=== PATIENT | male | born 1970 | race Caucasian/White ===

== ENCOUNTER → 2016-09-25 | Day surgery (SDC) | payer OTHER ==
[2016-09-21 11:51] VITALS: BMI 30.8
[~2016-09-25] MED LIST: LACTATED RINGERS SOLUTION 1,000 ML IV SCH; LEVOFLOXACIN 500 MG PREMIX BAG IVPB ONE; ONDANSETRON 4 MG/2 ML VIAL IVPUSH PRN; PROMETHAZINE HCL 25 MG/1 ML VIAL IVPUSH PRN
--- NOTE | 2016-09-25 12:33 | OP ---
Operative Note - Note: Operative Date: 09/25/16 Pre-Operative Diagnosis: left renal stone Operation: left eswl Findings: 13mm left lower pole stone Post-Operative Diagnosis: Same as Pre-op Surgeon: Shane Muniz Anesthesia: General Operative Report Dictated: Yes
[2016-09-25 12:47] VITALS: TEMP 98.4
--- NOTE | 2016-09-25 13:12 | OP ---
DATE OF OPERATION: 09/25/2016 PREOPERATIVE DIAGNOSIS: Left renal stone. POSTOPERATIVE DIAGNOSIS: Left renal stone. PROCEDURE: Left extracorporeal shock-wave lithotripsy. ATTENDING: Joe Perez MD ANESTHESIA: General. DESCRIPTION OF PROCEDURE: The patient was brought in the operating room and placed in supine position on the operating room table. Ultrasonography and fluoroscopy were performed. A 1.3-cm left lower pole stone was identified. At this point, antibiotics were identified, and general anesthesia was administered. Extracorporeal shock-wave lithotripsy was then begun. Then 3000 impulses at 18-20 J of power were administered to the stone. Excellent fragmentation was noted on real time ultrasonography and fluoroscopy. No complications were noted. The patient tolerated the procedure very well. DISPOSITION: To the recovery room. JOE PEREZ M.D. [id number]
[2016-09-25 14:25] VITALS: BP 138/87; PULSE 86
== END | disposition home or self-care (01) ==
LOC: JASU-SURG 09:21
PROVIDERS: ATTEND Urology
PROC: 0TF4XZZ Fragmentation in Left Kidney Pelvis, External Approach (ICD-10-PCS; principal; 2016-09-25 11:00)
DX: N20.0 Calculus of kidney (principal)
CPT/HCPCS: 94760

== ENCOUNTER 2017-06-04 06:48 | Emergency (ER) | payer OTHER ==
[2017-06-04 07:57] VITALS: BP 135/92; PULSE 87; TEMP 98.3; BMI 30.9
[2017-06-04] MEDS ORDERED: SODIUM CHLORIDE 1,000 ML IV STA (08:48)
[2017-06-04] MEDS ORDERED: KETOROLAC TROMETHAMINE 30 MG/1 ML VIAL IVPUSH ONE (08:48)
--- NOTE | 2017-06-04 09:04 | PDOC ---
History of Present Illness - General Chief Complaint: Pain, Acute Stated Complaint: LEFT SIDE PAIN Time Seen by Provider: 06/04/17 08:09 History Source: Patient - History of Present Illness Timing/Duration: reports: constant Quality: reports: moderate Past History - Past Medical History Allergies/Adverse Reactions: Allergies Allergy/AdvReac Type Severity Reaction Status Date / Time Penicillins Allergy Swelling Verified 06/04/17 07:57 shellfish derived Allergy Verified 06/04/17 07:57 SEAFOOD Allergy Uncoded 06/04/17 07:57 Home Medications: Ambulatory Orders Ibuprofen [Motrin -] 600 mg PO QID #28 tablet 06/04/17 Ondansetron HCl [Zofran] 4 mg PO Q8H #12 tablet 06/04/17 Tamsulosin HCl [Flomax] 0.4 mg PO DAILY #7 cap.er.24h 06/04/17 Tramadol HCl 50 mg PO Q6H #6 tablet MDD 200 mg 06/04/17 Anemia: No Asthma: No Cancer: No Cardiac Disorders: No CVA: No COPD: No CHF: No Dementia: No Diabetes: No GI Disorders: No Disorders: Yes (KIDNEY STONES) HTN: No Hypercholesterolemia: No Kidney Stones: Yes Liver Disease: No Seizures: No Thyroid Disease: No - Surgical History Abdominal Surgery: No Appendectomy: No Cardiac Surgery: No Cholecystectomy: No Lung Surgery: No Neurologic Surgery: No Orthopedic Surgery: No - Immunization History Immunization Up to Date: Yes - Suicide/Smoking/Psychosocial Hx Smoking Status: Yes Smoking History: Never smoked Have you smoked in the past 12 months: No Number of Cigarettes Smoked Daily: 2 Information on smoking cessation initiated: No 'Breaking Loose' booklet given: 12/30/12 Hx Alcohol Use: No Drug/Substance Use Hx: No Substance Use Type: Marijuana Hx Substance Use Treatment: No Review of Systems - Review of Systems Constitutional: No: Chills, Fever ABD/GI: No: Constipated, Diarrhea, Nausea, Vomiting : No: Dysuria *Physical Exam - Vital Signs Last Vital Signs Temp Pulse Resp BP Pulse Ox 98.3 F 87 18 135/92 100 06/04/17 07:55 06/04/17 07:55 06/04/17 07:55 06/04/17 07:55 06/04/17 07:55 - Physical Exam General Appearance: Yes: Appropriately Dressed. No: Apparent Distress HEENT: positive: Normal Voice Neck: positive: Supple Respiratory/Chest: negative: Respiratory Distress Gastrointestinal/Abdominal: positive: Soft. negative: Tender Musculoskeletal: negative: CVA Tenderness Extremity: positive: Normal Inspection Integumentary: positive: Dry, Warm Neurologic: positive: Fully Oriented, Alert, Normal Mood/Affect ED Treatment Course - LABORATORY CBC & Chemistry Diagram: 06/04/17 08:47 06/04/17 09:05 - RADIOLOGY Radiology Studies Ordered: Category Date Time Status ABDOMEN & PELVIS CT W/O CONTR [CT] Stat CT Scan 06/04/17 08:48 Ordered Medical Decision Making - Medical Decision Making 06/04/17 09:01 46-year-old male history of kidney stones, status post multiple lithotripsies in the past, here with left flank pain radiating to groin 5 days. States he was seen by Dr. Brower in office 5 days ago and had ultrasound done which did show stone as per patient. States he was told by M.D. to wait a couple days to see if stone would pass on its own. Patient states he has been checking urine at home and has not noticed any passage of stone and continues to have left flank pain, so decided to come in to ER today. Patient denies any dysuria, hematuria, nausea, vomiting, fever or chills See exam L flank alcocer r/o recurrent stone -pain control -IVF -labs -CT 06/04/17 10:35 6mm in lower pole of L kidney and tiny calcification in mid L ureter c/f partially obstructing stone w/ mild hydro. Labs unremarkable. Pt sig improved w / meds. Will page Dr Mike Ureña to discuss dispo 06/04/17 11:11 Pt does not wish to wait for Dr Turk to call back. Requesting discharge to f/ u with *DC/Admit/Observation/Transfer Diagnosis at time of Disposition: Renal colic on left side - Discharge Dispostion Disposition: HOME Condition at time of disposition: Improved - Prescriptions Prescriptions: Tamsulosin HCl [Flomax] 0.4 mg PO DAILY #7 cap.er.24h Ibuprofen [Motrin -] 600 mg PO QID #28 tablet Tramadol HCl 50 mg PO Q6H #6 tablet MDD 200 mg Ondansetron HCl [Zofran] 4 mg PO Q8H #12 tablet - Patient Instructions Printed Discharge Instructions: Kidney Stones -- Adult Additional Instructions: Take medications as prescribed and follow-up with your urologist. If symptoms persist and/or worsen, return to ED immediately
[2017-06-04 09:13] LABS: BASOPHIL 0.7 % (0-2.0); EOSINOPHIL 2.5 % (0-4.5); MCH 30.1 pg (25.7-33.7); MCHC 34.7 g/dl (32.0-35.9); MEAN CELL VOLUME 86.6 fl (80-96); MEAN PLT VOLUME 8.5 fl (7.5-11.1); NEUTROPHILS 62.9 % (42.8-82.8); PLATELET COUNT 114 K/MM3 (134-434); RDW 13.7 % (11.9-15.9); WHITE BLOOD COUNT 6.9 K/mm3 (4.0-10.0)
[2017-06-04 09:26] LABS: URINE APPEARANCE SLCLOUDY; URINE BILIRUBIN NEGATIVE (NEGATIVE); URINE BLOOD 2+ (NEGATIVE); URINE COLOR LTYELLOW; URINE GLUCOSE (UA) NEGATIVE (NEGATIVE); URINE KETONE NEGATIVE (NEGATIVE); URINE LEUK ESTERASE NEGATIVE (NEGATIVE); URINE NITRITE NEGATIVE (NEGATIVE); URINE PROTEIN NEGATIVE (NEGATIVE); URINE UROBILINOGEN NEGATIVE mg/dL (0.2-1.0)
[2017-06-04 09:33] LABS: URINE MUCUS RARE; URINE RBC 1 /hpf (0-3); URINE WBC 3 /hpf (3-5)
[2017-06-04 09:38] LABS: ALBUMIN 3.9 g/dl (3.4-5.0); ANION GAP 5 (8-16); CALCIUM 8.8 mg/dL (8.5-10.1); CO2 27 mmol/L (21-32); GLUCOSE,RANDOM 120 mg/dL (74-106); SGOT/AST 25 U/L (15-37); SGPT/ALT 49 U/L (12-78)
[2017-06-04 09:40] LABS: ALK PHOS 67 U/L (45-117); BILIRUBIN,TOTAL 0.5 mg/dL (0.2-1.0); TOT PROT 7.7 g/dl (6.4-8.2)
[2017-06-04] MEDS ORDERED: KETOROLAC TROMETHAMINE 30 MG/1 ML VIAL ONE (10:16)
[2017-06-04] MEDS ORDERED: TAMSULOSIN HCL 0.4 MG CAP.ER.24H (FP) PO ONE (10:19)
== END 2017-06-04 11:04 | disposition home or self-care (01) ==
LOC: JER 06:48
PROC: 3E0333Z Introduction of Anti-inflammatory into Peripheral Vein, Percutaneous Approach (ICD-10-PCS; principal; 2017-06-04)
DX: N20.0 Calculus of kidney (principal); Z87.442 Personal history of urinary calculi
CPT/HCPCS: 36415; 74176-TC; 80053; 81003; 81015; 85025; 87086; 96374; 99281-25

== ENCOUNTER 2017-06-10 20:20 | Inpatient (IN) | payer OTHER ==
[2017-06-10] MEDS ORDERED: morphine CARPU-JECT 2 MG/1 ML DISP.SYRIN IVPUSH ONE (20:55)
[2017-06-10] MEDS ORDERED: KETOROLAC TROMETHAMINE 30 MG/1 ML VIAL IVPUSH ONE (20:55)
[2017-06-10] MEDS ORDERED: SODIUM CHLORIDE 0.9% 1000 ML INFUS.BAG IV ONE (20:56)
[2017-06-10] MEDS ORDERED: morphine CARPU-JECT 4 MG/1 ML DISP.SYRIN ONE (20:58)
[2017-06-10] MEDS ORDERED: KETOROLAC TROMETHAMINE 30 MG/1 ML VIAL ONE (20:58)
[2017-06-10 21:02] LABS: BASOPHIL 0.7 % (0-2.0); EOSINOPHIL 2.7 % (0-4.5); MCH 30.7 pg (25.7-33.7); MEAN CELL VOLUME 87.6 fl (80-96); MEAN PLT VOLUME 8.6 fl (7.5-11.1); NEUTROPHILS 58.3 % (42.8-82.8); PLATELET COUNT 120 K/MM3 (134-434); RDW 13.6 % (11.9-15.9); WHITE BLOOD COUNT 7.9 K/mm3 (4.0-10.0)
[2017-06-10] MEDS ORDERED: ONDANSETRON 4 MG/2 ML VIAL ONE (21:03)
[2017-06-10 21:04] LABS: URINE APPEARANCE CLEAR; URINE BILIRUBIN NEGATIVE (NEGATIVE); URINE BLOOD 2+ (NEGATIVE); URINE COLOR YELLOW; URINE GLUCOSE (UA) NEGATIVE (NEGATIVE); URINE KETONE NEGATIVE (NEGATIVE); URINE LEUK ESTERASE NEGATIVE (NEGATIVE); URINE NITRITE NEGATIVE (NEGATIVE); URINE PROTEIN NEGATIVE (NEGATIVE); URINE UROBILINOGEN NEGATIVE mg/dL (0.2-1.0)
[2017-06-10 21:06] LABS: URINE RBC 5 /hpf (0-3); URINE WBC 3 /hpf (3-5)
[2017-06-10] MEDS ORDERED: ONDANSETRON 4 MG/2 ML VIAL IVPUSH ONE (21:09)
[2017-06-10 21:53] LABS: ALBUMIN 3.8 g/dl (3.4-5.0); ANION GAP 8 (8-16); BILIRUBIN,TOTAL 0.4 mg/dL (0.2-1.0); CALCIUM 8.7 mg/dL (8.5-10.1); CO2 24 mmol/L (21-32); CREATININE 1.2 mg/dL (0.7-1.3); GLUCOSE,RANDOM 147 mg/dL (74-106); SGPT/ALT 50 U/L (12-78); TOT PROT 7.7 g/dl (6.4-8.2)
[2017-06-10 21:54] LABS: ALK PHOS 67 U/L (45-117)
[2017-06-10 21:55] LABS: SGOT/AST 22 U/L (15-37)
--- NOTE | 2017-06-10 22:05 | PDOC ---
History of Present Illness - General History Source: Patient Exam Limitations: No Limitations - History of Present Illness Initial Comments: 06/10/17 21:54 Patient is a 46-year-old male with history of kidney stones, lithotripsy, complaining of left flank pain which started today. The pain is about 5/10 but at times it to be 10/10, colicky, and radiates to the left lower quadrant groin and in the thigh, consistent with his kidney stone pain, associated with some nausea intermittently, no vomiting, no fever, no hematuria, no dysuria. Patient was seen here on 06/04 for the same issues, had a CT scan which showed renal stones, and in the ureter, with hydronephrosis and hydroureter. He was put on antibiotics and flomax and followed up with his urology post discharge. He was instructed to come to the emergency room if he had any problems. Patient has a long standing history of kidney stones. PMD: Dr. Russell Mobley Urology: Dr. Jones PSOCHX: occ etoh, neg cig, neg drug ALL: PCN GENERAL/CONSTITUTIONAL: [No fever or chills. No weakness. No weight change.] HEAD, EYES, EARS, NOSE AND THROAT: [No change in vision. No ear pain or discharge. No sore throat.] CARDIOVASCULAR: [No chest pain or shortness of breath.] RESPIRATORY: [No cough, wheezing, or hemoptysis.] GASTROINTESTINAL: (+) nausea, (-) vomiting, diarrhea or constipation. No rectal bleeding.] GENITOURINARY: (+) dysuria, frequency, or change in urination, (+) flank pain] MUSCULOSKELETAL: [No joint or muscle swelling or pain. No neck or back pain.] SKIN AND BREASTS: [No rash or easy bruising.] NEUROLOGIC: [No headache, vertigo, loss of consciousness, or loss of sensation.] PSYCHIATRIC: [No depression or anxiety.] ENDOCRINE: [No increased thirst. No abnormal weight change.] HEMATOLOGIC/LYMPHATIC: [No anemia, easy bleeding, or history of blood clots.] ALLERGIC/IMMUNOLOGIC: [No hives or skin allergy. No latex allergy.] GENERAL: [The patient is awake, alert, and fully oriented, in mild distress.] HEAD: [Normal with no signs of trauma.] EYES: [Pupils equal, round and reactive to light, extraocular movements intact, sclera anicteric, conjunctiva clear.] ENT: [Ears normal, nares patent, oropharynx clear without exudates. Moist mucous membranes.] NECK: [Normal range of motion, supple without lymphadenopathy, JVD, or masses.] LUNGS: [Breath sounds equal, clear to auscultation bilaterally. No wheezes, and no crackles.] HEART: [Regular rate and rhythm, normal S1 and S2 without murmur, rub.] ABDOMEN: [Soft, (+) tenderness to the LLQ, groin, normoactive bowel sounds. No guarding, no rebound. No masses, (+) LCVAT] EXTREMITIES: [Normal range of motion, no edema. No clubbing or cyanosis. No cords, erythema, or tenderness.] NEUROLOGICAL: [Cranial nerves II through XII grossly intact. Normal speech, normal gait.] PSYCH: [Normal mood, normal affect.] SKIN: [Warm, Dry, normal turgor, no rashes or lesions noted.] <Arnold Zamorano - Last Filed: 06/11/17 00:46> <Suleiman Raza - Last Filed: 06/12/17 09:26> - General Chief Complaint: Pain, Acute Stated Complaint: ACUTE PAIN Time Seen by Provider: 06/10/17 20:46 Past History - Past Medical History Anemia: No Asthma: No Cancer: No Cardiac Disorders: No CVA: No COPD: No CHF: No Dementia: No Diabetes: No GI Disorders: No Disorders: Yes (KIDNEY STONES) HTN: No Hypercholesterolemia: No Kidney Stones: Yes Liver Disease: No Seizures: No Thyroid Disease: No - Surgical History Abdominal Surgery: No Appendectomy: No Cardiac Surgery: No Cholecystectomy: No Lung Surgery: No Neurologic Surgery: No Orthopedic Surgery: No - Immunization History Immunization Up to Date: Yes - Suicide/Smoking/Psychosocial Hx Smoking Status: Yes Smoking History: Never smoked Have you smoked in the past 12 months: No Number of Cigarettes Smoked Daily: 2 'Breaking Loose' booklet given: 12/30/12 Hx Alcohol Use: No Drug/Substance Use Hx: No Substance Use Type: Marijuana Hx Substance Use Treatment: No <Arnold Zamorano - Last Filed: 06/11/17 00:46> <Suleiman Raza - Last Filed: 06/12/17 09:26> - Past Medical History Allergies/Adverse Reactions: Allergies Allergy/AdvReac Type Severity Reaction Status Date / Time Penicillins Allergy Swelling Verified 06/04/17 07:57 shellfish derived Allergy Verified 06/04/17 07:57 SEAFOOD Allergy Uncoded 06/04/17 07:57 Home Medications: Ambulatory Orders Ibuprofen [Motrin -] 600 mg PO QID #28 tablet 06/04/17 Ondansetron HCl [Zofran] 4 mg PO Q8H #12 tablet 06/04/17 Tamsulosin HCl [Flomax] 0.4 mg PO DAILY #7 cap.er.24h 06/04/17 *Physical Exam - Vital Signs Last Vital Signs Temp Pulse Resp BP Pulse Ox 98.8 F 91 H 18 136/92 99 06/10/17 20:22 06/10/17 20:22 06/10/17 20:22 06/10/17 20:22 06/10/17 20:22 <Arnold Zamorano - Last Filed: 06/11/17 00:46> - Vital Signs Last Vital Signs Temp Pulse Resp BP Pulse Ox 97.7 F 64 18 112/69 100 06/12/17 05:44 06/12/17 05:44 06/12/17 05:44 06/12/17 05:44 06/11/17 20:50 <Suleiman Raza - Last Filed: 06/12/17 09:26> ED Treatment Course - LABORATORY CBC & Chemistry Diagram: 06/10/17 20:50 06/10/17 20:50 - ADDITIONAL ORDERS Additional order review: Laboratory Results 06/10/17 20:50 Urine Color Yellow Urine Appearance Clear Urine pH 5.0 Urine Protein Negative Urine Glucose (UA) Negative Urine Ketones Negative Urine Blood 2+ H Urine Nitrite Negative Urine Bilirubin Negative Urine Urobilinogen Negative Urine RBC 5 Urine WBC 3 Ur Epithelial Cells Rare 06/10/17 20:50 RBC 5.29 MCV 87.6 MCHC 35.0 RDW 13.6 MPV 8.6 Neutrophils % 58.3 Lymphocytes % 29.6 Monocytes % 8.7 Eosinophils % 2.7 Basophils % 0.7 - Medications Given in the ED: ED Medications Discontinued Medications Generic Name Dose Route Start Last Admin Trade Name Freq PRN Reason Stop Dose Admin Ketorolac Tromethamine 30 mg 10/01/17 20:55 06/10/17 21:06 Toradol Injection - IVPUSH 06/10/17 20:56 30 mg ONCE ONE Administration Morphine Sulfate 2 mg 06/10/17 20:55 06/10/17 21:06 Morphine Injection - IVPUSH 06/10/17 20:56 2 mg ONCE ONE Administration Ondansetron HCl 4 mg 06/10/17 21:09 06/10/17 21:11 Zofran Injection IVPUSH 06/10/17 21:10 4 mg ONCE ONE Administration Sodium Chloride 1,000 ml 06/10/17 20:56 06/10/17 21:06 Normal Saline - IV 06/10/17 20:57 1,000 ml ONCE ONE Administration <Arnold Zamorano - Last Filed: 06/11/17 00:46> - LABORATORY CBC & Chemistry Diagram: 06/12/17 06:00 06/12/17 06:00 - ADDITIONAL ORDERS Additional order review: 06/10/17 20:50 RBC 5.29 MCV 87.6 MCHC 35.0 RDW 13.6 MPV 8.6 Neutrophils % 58.3 Lymphocytes % 29.6 Monocytes % 8.7 Eosinophils % 2.7 Basophils % 0.7 - Medications Given in the ED: ED Medications Discontinued Medications Generic Name Dose Route Start Last Admin Trade Name Davidq PRN Reason Stop Dose Admin Hydromorphone HCl 1 mg 06/11/17 03:19 06/11/17 09:53 Dilaudid Injection - IVPB 1 mg Q3H PRN Administration PAIN Sodium Chloride 1,000 mls @ 75 mls/hr 06/11/17 03:30 06/11/17 03:37 Normal Saline - IV 75 mls/hr ASDIR NAYELY Administration Ketorolac Tromethamine 30 mg 06/10/17 20:55 06/10/17 21:06 Toradol Injection - IVPUSH 06/10/17 20:56 30 mg ONCE ONE Administration Morphine Sulfate 2 mg 06/10/17 20:55 06/10/17 21:06 Morphine Injection - IVPUSH 06/10/17 20:56 2 mg ONCE ONE Administration Ondansetron HCl 4 mg 06/10/17 21:09 06/10/17 21:11 Zofran Injection IVPUSH 06/10/17 21:10 4 mg ONCE ONE Administration Sodium Chloride 1,000 ml 06/10/17 20:56 06/10/17 21:06 Normal Saline - IV 06/10/17 20:57 1,000 ml ONCE ONE Administration <Suleiman Raza - Last Filed: 06/12/17 09:26> Medical Decision Making - Medical Decision Making 06/10/17 21:54 Patient is a 46-year-old male with history of kidney stones, lithotripsy, complaining of left flank pain which started today. The pain is about 5/10 but at times it to be 10/10, colicky, and radiates to the left lower quadrant groin and in the thigh, consistent with his kidney stone pain, will get labs, morphine, zofran and toradol for the pain, IVF will contact Urology. 06/10/17 22:08 Laboratory Tests 06/10/17 06/10/17 06/10/17 20:50 20:50 20:50 WBC 7.9 Hgb 16.3 Hct 46.4 Plt Count 120 L Sodium 139 Potassium 4.0 Chloride 107 Carbon Dioxide 24 BUN 20 H Creatinine 1.2 Random Glucose 147 H D Urine Color Yellow Urine Appearance Clear Urine pH 5.0 Ur Specific [place] Pending Urine Protein Negative Urine Glucose (UA) Negative Urine Ketones Negative Urine Blood 2+ H Urine Nitrite Negative Urine Bilirubin Negative Urine Urobilinogen Negative Urine RBC 5 Urine WBC 3 No acute findings on lab work Patient is now pain-free will touch base with urology for a disposition plan. 2200 Case d/w with Urology recommend to admit to the hospitalist, NPO after midnight. Paged the hospitalist will not admit for this PMD. Called PMD Dr. Mobley, who is being covered by Dr. Peña, covered by Dr. Davis. 06/11/17 00:[address] Davis will admit but admission under Dr. Peña <Arnold Zamorano - Last Filed: 06/11/17 00:46> - Medical Decision Making 06/12/17 09:25 The patient was seen and evaluated in conjunction with TIO Gottlieb under my direct supervision, ancillary studies were reviewed. I independently interviewed and evaluated the patient and I agree with the plan as outlined by TIO Gottlieb. <Suleiman Raza - Last Filed: 06/12/17 09:26> *DC/Admit/Observation/Transfer - Discharge Dispostion Admit: Yes <Arnold Zamorano - Last Filed: 06/11/17 00:46> <Suleiman Raza - Last Filed: 06/12/17 09:26> Diagnosis at time of Disposition: Nephrolithiasis, Renal colic on left side - Discharge Dispostion Condition at time of disposition: Stable - Referrals
[2017-06-11 02:57] VITALS: BMI 32.3
[2017-06-11] MEDS ORDERED: SODIUM CHLORIDE 1,000 ML IV SCH ×2 (03:30→12:30)
[2017-06-11] MEDS: HYDROmorphone HCL CARPU-JECT 1 MG/1 ML DISP.SYRIN IVPB PRN ×2 (03:40→09:53)
[2017-06-11] MEDS ORDERED: ACETAMINOPHEN 325 MG TABLET (FP) PO PRN ×2 (12:19→16:05)
[2017-06-11] MEDS ORDERED: ONDANSETRON 4 MG/2 ML VIAL IVPB PRN ×2 (12:19→16:05)
--- NOTE | 2017-06-11 12:32 | HP ---
Admitting History and Physical - Primary Care Physician PCP: Hong Mobley - Admission Chief Complaint: I have kidney stones History of Present Illness: Mr Tony is a very pleasant 46 year old male who comes in with known kidney stones with unresolved pain. He says he has a history of kidney stones, and last week he began to have L flank pain. He was seen in the ED, the stone was felt to be small enough to pass on its own so he was discharged on flomax and analgesics. However the pain continued and worsened. He had nausea associated with the pain. Because of this he came in and was admitted. Aside from the pain and nausea he is without complaint. He denies fevers, chills, lightheadedness, dizziness, passing out, chest pain, shortness of breath, nausea, vomiting, diarrhea, constipation, difficulty or pain on urination, or swelling. History Source: Patient Limitations to Obtaining History: No Limitations - Past Medical History Renal/: Yes: Renal Calculi - Past Surgical History Additional Past Surgical History: lithotripsy - Smoking History Smoking history: Former smoker Have you smoked in the past 12 months: No Aproximately how many cigarettes per day: 2 - Alcohol/Substance Use Hx Alcohol Use: Yes History of Substance Use: reports: None - Social History ADL: Independent History of Recent Travel: No Home Medications - Allergies Allergies/Adverse Reactions: Allergies Allergy/AdvReac Type Severity Reaction Status Date / Time Penicillins Allergy Swelling Verified 06/04/17 07:57 shellfish derived Allergy Verified 06/04/17 07:57 SEAFOOD Allergy Uncoded 06/04/17 07:57 - Home Medications Home Medications: Ambulatory Orders Ibuprofen [Motrin -] 600 mg PO QID #28 tablet 06/04/17 Ondansetron HCl [Zofran] 4 mg PO Q8H #12 tablet 06/04/17 Tamsulosin HCl [Flomax] 0.4 mg PO DAILY #7 cap.er.24h 06/04/17 Family Disease History - Family Disease History Family Disease History: Heart Disease: Father Review of Systems Findings/Remarks: Full review of systems obtained, as per HPI and otherwise negative Physical Examination Vital Signs: Vital Signs Temperature 36.6 C 06/11/17 06:00 Pulse Rate 63 06/11/17 06:00 Respiratory Rate 20 06/11/17 09:00 Blood Pressure 124/69 06/11/17 06:00 O2 Sat by Pulse Oximetry (%) 97 06/11/17 09:00 Constitutional: Yes: Well Nourished, No Distress, Calm Eyes: Yes: Conjunctiva Clear, EOM Intact, PERRL HENT: Yes: Atraumatic, Normocephalic Cardiovascular: Yes: Regular Rate and Rhythm. No: Gallop, Murmur, Rub Respiratory: Yes: Regular, CTA Bilaterally. No: Rales, Rhonchi, Wheezes Gastrointestinal: Yes: Normal Bowel Sounds, Soft. No: Distention, Tenderness Extremities: Yes: WNL Edema: No Labs: Laboratory Results - last 24 hr 06/10/17 06/10/17 06/10/17 20:50 20:50 20:50 WBC 7.9 RBC 5.29 Hgb 16.3 Hct 46.4 MCV 87.6 MCH 30.7 MCHC 35.0 RDW 13.6 Plt Count 120 L MPV 8.6 Neutrophils % 58.3 Lymphocytes % 29.6 Monocytes % 8.7 Eosinophils % 2.7 Basophils % 0.7 Sodium 139 Potassium 4.0 Chloride 107 Carbon Dioxide 24 Anion Gap 8 BUN 20 H Creatinine 1.2 Creat Clearance w eGFR > 60 Random Glucose 147 H D Calcium 8.7 Total Bilirubin 0.4 AST 22 ALT 50 Alkaline Phosphatase 67 Total Protein 7.7 Albumin 3.8 Urine Color Yellow Urine Appearance Clear Urine pH 5.0 Ur Specific [place] 1.025 Urine Protein Negative Urine Glucose (UA) Negative Urine Ketones Negative Urine Blood 2+ H Urine Nitrite Negative Urine Bilirubin Negative Urine Urobilinogen Negative Urine RBC 5 Urine WBC 3 Ur Epithelial Cells Rare Problem List - Problems (1) Nephrolithiasis Assessment/Plan: -patient comes in with nephrolithiasis/ureterolithiasis, failed outpatient therapy -admitted to hospital -pain control and IVF -urology consulted -possible intervention today -if undergoes intervention, plan for discharge tomorrow Code(s): N20.0 - CALCULUS OF KIDNEY
[2017-06-11] MEDS ORDERED: MIDAZOLAM HCL 2 MG/2 ML SINGLE DOSE VIAL ONE (14:37)
[2017-06-11] MEDS ORDERED: HYDROmorphone HCL CARPU-JECT 1 MG/1 ML DISP.SYRIN IVPUSH PRN (14:43)
[2017-06-11] MEDS ORDERED: DEXAMETHASONE SOD PHOSPHATE 4 MG/1 ML VIAL ONE (14:54)
[2017-06-11] MEDS ORDERED: LIDOCAINE HCL/PF 2% SDV 5ML VIAL ONE (14:56)
[2017-06-11] MEDS ORDERED: PROPOFOL 20 ML ONE (14:56)
[2017-06-11] MEDS ORDERED: LEVOFLOXACIN 500 MG IVPB 100 ML IVPB ONE (14:56)
--- NOTE | 2017-06-11 15:29 | CONSULT ---
Consult - text type - Consultation Consultation Note: cc: left renal colic hpi patient with 3 week history of left flank pain with hydro secondary to ureteral stone. Patient with nausea and vomiting with chills. Patient has been hydrating and taking flomax for 2-3 weeks. Patient has pain not controlled with percocet. afeb singificant left CVAT imp left renal colic secondary to left hydronephrosis from a ureteteral stone plan discussed with patient x 20 minutes patient taken emergently to the OR for stone basketing
--- NOTE | 2017-06-11 15:31 | OP ---
Operative Note - Note: Operative Date: 06/11/17 Pre-Operative Diagnosis: left renal colic/left hydronephrosis secondary to ureteral stone Operation: cysto/left retrograde pyelogram/left ureteroscopic stone basketing Findings: 4 mm left distal ureteral stone which fragmented with basketing/ no stent placed Post-Operative Diagnosis: Same as Pre-op Surgeon: Sahne Muniz Anesthesia: General Specimens Removed: left ureteral stone Operative Report Dictated: Yes
[2017-06-11] MEDS: SODIUM CHLORIDE 1,000 ML IV SCH (20:27)
[2017-06-11] MEDS ORDERED: DOCUSATE SODIUM 100 MG CAPSULE (FP) PO SCH (22:00)
[2017-06-12 07:23] LABS: BASOPHIL 0.5 % (0-2.0); MCH 29.8 pg (25.7-33.7); MEAN CELL VOLUME 87.5 fl (80-96); MEAN PLT VOLUME 8.7 fl (7.5-11.1); NEUTROPHILS 85.5 % (42.8-82.8); PLATELET COUNT 127 K/MM3 (134-434); RDW 13.7 % (11.9-15.9); WHITE BLOOD COUNT 13.3 K/mm3 (4.0-10.0)
[2017-06-12 07:31] LABS: ANION GAP 5 (8-16); CALCIUM 8.6 mg/dL (8.5-10.1); CO2 29 mmol/L (21-32); CREATININE 1.2 mg/dL (0.7-1.3); GLUCOSE,RANDOM 145 mg/dL (74-106); MAGNESIUM 2.2 mg/dL (1.8-2.4); PHOSPHOROUS 3.8 mg/dL (2.5-4.9)
[2017-06-12] MEDS ORDERED: TAMSULOSIN HCL 0.4 MG CAP.ER.24H (FP) PO SCH ×2 (08:30)
[2017-06-12] MEDS: SODIUM CHLORIDE 1,000 ML IV SCH (08:33)
[2017-06-12 11:16] VITALS: BP 124/79; PULSE 86; TEMP 98.3
--- NOTE | 2017-06-12 12:58 | DS ---
Physical Examination Vital Signs: Vital Signs Temperature 36.8 C 06/12/17 09:00 Pulse Rate 86 06/12/17 09:00 Respiratory Rate 18 06/12/17 09:00 Blood Pressure 124/79 06/12/17 09:00 O2 Sat by Pulse Oximetry (%) 96 06/12/17 09:00 Constitutional: Yes: Well Nourished, No Distress, Calm Cardiovascular: Yes: Regular Rate and Rhythm. No: Gallop, Murmur, Rub Respiratory: Yes: Regular, CTA Bilaterally. No: Rales, Rhonchi, Wheezes Gastrointestinal: Yes: Normal Bowel Sounds, Soft. No: Distention, Tenderness Extremities: Yes: WNL Edema: No Labs: CBC, BMP 06/12/17 06:00 06/12/17 06:00 Discharge Summary Reason For Visit: RENAL COLIC ON LEFT SIDE Current Active Problems Nephrolithiasis (Acute) Renal colic on left side (Acute) Hospital Course: Mr Tony is a very pleasant 46 year old male who comes in with ureterolithiasis that failed to pass with conservative outpatient treatment. He was admitted to the hospital and placed on IVF. He was seen by urology and underwent stone retrieval. This was successful, and no stent was needed. After this his pain resolved and he was feeling better. He is safe for discharge home. He was instructed on foods to avoid to help prevent further kidney stones and given material as well. 33 minutes spent in preparation of this discharge Condition: Good - Instructions Diet, Activity, Other Instructions: information given about diet, resume previous activity Referrals: Hong Mobley MD [Primary Care Provider] - Shane Muniz MD [Staff Physician] - Disposition: HOME - Home Medications Comprehensive Discharge Medication List: Ambulatory Orders Tamsulosin HCl [Flomax] 0.4 mg PO DAILY #7 cap.er.24h 06/04/17
--- NOTE | 2017-06-12 14:31 | OP ---
DATE OF OPERATION: 06/11/2017 PREOPERATIVE DIAGNOSIS: Left renal colic with left hydronephrosis secondary to left ureteral stone. ATTENDING: Joe Perez MD ANESTHESIA: General. PROCEDURE: Cystoscopy, left retrograde pyelogram, left ureteroscopic stone basketing. DESCRIPTION OF OPERATION: The patient had a 3-week history of left renal colic with significant nausea and occasional vomiting. Patient has been suffering from chills without fever. Patient has been hydrating himself and on Percocet and Flomax without significant improvement in his symptoms. The patient has a high pain threshold and has passed multiple stones in the past. The patient was admitted to [facility] on June 10. Patient was seen in the morning and noted to be in significant distress secondary to pain. The patient is emergently taken to the operating room to relieve the obstruction of his left kidney. The patient understands all risks and benefits. The patient is brought in the operating room and placed in supine position on the operating room table. The patient is given general anesthesia and preoperative antibiotics consisting of Levaquin. Patient was then placed in the dorsal lithotomy position and prepped and draped in the usual sterile manner. Cystoscopy is performed. stones within the bladder are noted. No masses are noted. The left ureteral orifice appears normal without evidence of trauma secondary to passage of a stone. At this point, a retrograde pyelogram is performed utilizing an open-ended catheter in intubating the ureter. At this point, ureteroscopy was performed, and a stone is noted in the intramural aspect of the ureter. Under direct vision through the ureteroscope, a basket is placed distal to the stone and then opened. It was then brought in and grasped. With removal of the stone, the stone is crushed, and fragments are lost. One fragment is seen and sent for analysis. At this point, a retrograde pyelogram was performed, and there was no evidence of obstruction with adequate drainage at this time. Given that there was no evidence of significant obstruction and the kidney drained well, it was decided to leave the patient without a stent. The patient will be followed conservatively as an outpatient. No complications were noted. The patient tolerated the procedure very well. JOE PEREZ M.D. /[id number]
--- NOTE | 2017-06-13 09:10 | PATH ---
Surgical Pathology Report Patient Name: DALLAS WETZEL Med. Rec. #: [id number] /Age/Gender: 1970 (Age: 46) / M Account: [id number] Location: [facility] MED/SURG Taken: 06/11/2017 Received: 06/12/2017 Reported: 06/13/2017 Physicians: Shane Peña M.D. Specimen(s) Received LEFT URETERAL STONE Clinical History Left ureteral stone Final Diagnosis LEFT URETERAL STONE, EXTRACTION: CALCULI SUBMITTED FOR CHEMICAL ANALYSIS (gross only). Electronically Signed Kin Calvert M.D. Gross Description Received fresh labeled "left ureteral stone," is a less than 0.1 cm in greatest dimension jacobo-kilpatrick, irregular calculus which is sent for chemical analysis. 06/12/201706/12/2017
== END 2017-06-12 13:09 | disposition home or self-care (01) | DRG 446 ==
LOC: JER 20:20 → JERBED 06-11 00:04 → J7W 06-11 02:40
PROVIDERS: ADMIT Internal Medicine; ATTEND Internal Medicine
PROC: BT1FYZZ Fluoroscopy of Left Kidney, Ureter and Bladder using Other Contrast (ICD-10-PCS; 2017-06-11)
PROC: 0TC78ZZ Extirpation of Matter from Left Ureter, Via Natural or Artificial Opening Endoscopic (ICD-10-PCS; principal; 2017-06-11 12:30)
DX: N13.2 Hydronephrosis with renal and ureteral calculous obstruction (principal); Z88.0 Allergy status to penicillin; Z87.891 Personal history of nicotine dependence
CPT/HCPCS: 36415; 76000-TC; 80048; 80053; 81003; 81015; 82360; 83735; 84100; 85025; 88300-TC; 94760; 99284-25

== ENCOUNTER 2017-07-30 12:13 | Day surgery (SDC) | payer OTHER ==
[2017-07-19 19:41] VITALS: BMI 30.5
[2017-07-30] MEDS ORDERED: LEVOFLOXACIN 500 MG IVPB 500 MG/100 ML BAG IVPB ONE (13:04)
[2017-07-30] MEDS ORDERED: LIDOCAINE HCL/PF 2% SDV 5ML VIAL ONE (13:05)
[2017-07-30] MEDS ORDERED: MIDAZOLAM HCL 2 MG/2 ML SINGLE DOSE VIAL ONE ×2 (13:06)
[2017-07-30] MEDS ORDERED: PROPOFOL 20 ML ONE (13:06)
[2017-07-30] MEDS ORDERED: LEVOFLOXACIN 500 MG PREMIX BAG IVPB ONE (13:10)
[2017-07-30] MEDS ORDERED: KETOROLAC TROMETHAMINE 30 MG/1 ML VIAL ONE (13:19)
[2017-07-30] MEDS ORDERED: oxyCODONE HCL 5 MG TABLET PO PRN (13:38)
[2017-07-30] MEDS ORDERED: ONDANSETRON 4 MG/2 ML VIAL IVPUSH PRN (13:38)
[2017-07-30] MEDS ORDERED: IBUPROFEN 800 MG/8 ML IJ IVPB PRN (13:38)
[2017-07-30] MEDS ORDERED: LACTATED RINGERS SOLUTION 1,000 ML IV SCH (13:45)
[2017-07-30 14:33] VITALS: TEMP 98
--- NOTE | 2017-07-30 15:40 | OP ---
Operative Note - Note: Operative Date: 07/30/17 Pre-Operative Diagnosis: left renal stone Operation: left eswl Findings: 7 mm left upper pole stone Post-Operative Diagnosis: Same as Pre-op Surgeon: Shane Muniz Anesthesia: Fractional
[2017-07-30 15:45] VITALS: BP 139/92; PULSE 82
--- NOTE | 2017-07-30 22:32 | OP ---
DATE OF OPERATION: 07/30/2017 PREOPERATIVE DIAGNOSIS: Left renal stone. POSTOPERATIVE DIAGNOSIS: Left renal stone. PROCEDURE: Left extracorporeal shock wave lithotripsy. ATTENDING: Joe Perez MD ANESTHESIA: Fractional. DESCRIPTION OF OPERATION: The patient was brought in the operating room and placed in supine position on the operating room table. Ultrasonography and fluoroscopy were performed. A 7-mm left upper pole stone was identified. At this point, anesthesia was administered, with intravenous Levaquin. At this point, extracorporeal shock wave lithotripsy was performed; 2500 impulses at 17 joules of power were administered to the left upper pole stone with excellent fragmentation under real-time ultrasonography and fluoroscopy. No complications were noted. The disposition of the patient was to recovery room. JOE PEREZ M.D. [id number]
== END 2017-07-30 15:49 | disposition home or self-care (01) ==
LOC: JASU-SURG 12:13
PROVIDERS: ATTEND Urology
PROC: 0TF4XZZ Fragmentation in Left Kidney Pelvis, External Approach (ICD-10-PCS; principal; 2017-07-30 14:00)
DX: N20.0 Calculus of kidney (principal)
CPT/HCPCS: 94760

== ENCOUNTER 2018-07-01 07:33 | Day surgery (SDC) | payer OTHER ==
[2018-06-27 15:28] VITALS: BMI 30.4
[2018-07-01] MEDS ORDERED: PROPOFOL 20 ML ONE (09:04)
[2018-07-01] MEDS ORDERED: MIDAZOLAM HCL 2 MG/2 ML SINGLE DOSE VIAL ONE (09:04)
[2018-07-01] MEDS ORDERED: LIDOCAINE HCL/PF 2% SDV 5ML VIAL ONE (09:08)
[2018-07-01] MEDS ORDERED: KETOROLAC TROMETHAMINE 30 MG/1 ML VIAL ONE (09:34)
--- NOTE | 2018-07-01 09:49 | OP ---
Operative Note - Note: Operative Date: 07/01/18 Pre-Operative Diagnosis: Left Renal Stone Operation: Left ESWL Findings: 5 mm mid pole Left renal stone Post-Operative Diagnosis: Same as Pre-op Surgeon: Shane Muniz Anesthesia: Fractional Estimated Blood Loss (mls): 0
[2018-07-01 09:59] VITALS: TEMP 97.7
[2018-07-01 11:56] VITALS: BP 132/76; PULSE 91
--- NOTE | 2018-07-01 21:04 | OP ---
DATE OF OPERATION: 07/01/2018 PREOPERATIVE DIAGNOSIS: Left renal stone. POSTOPERATIVE DIAGNOSIS: Left renal stone. PROCEDURE: Left extracorporeal shock wave lithotripsy. ATTENDING: Joe Perez MD ANESTHESIA: Fractional. DESCRIPTION OF OPERATION: The patient was brought in the operating room, placed in supine position on the operating room table. A 5-mm left mid-pole stone was identified. Anesthesia and preoperative antibiotics were then administered. Shock wave lithotripsy was then started; 2500 impulses at 18 joules of power were administered to the stone with excellent fragmentation noted under real-time ultrasonography and fluoroscopy. No complications were noted, and the disposition of the patient was to the recovery room. JOE PEREZ M.D. [id number]
== END 2018-07-01 12:29 | disposition home or self-care (01) ==
LOC: JASU-SURG 07:33
PROVIDERS: ATTEND Urology
PROC: 0TF4XZZ Fragmentation in Left Kidney Pelvis, External Approach (ICD-10-PCS; principal; 2018-07-01 08:45)
DX: N20.0 Calculus of kidney (principal)

== ENCOUNTER 2019-06-16 09:14 | Day surgery (SDC) | payer OTHER ==
[2019-06-13 11:20] VITALS: BMI 30.8
[2019-06-16] MEDS ORDERED: ACETAMINOPHEN 325 MG TABLET (FP) PO PRN (10:03)
[2019-06-16] MEDS ORDERED: oxyCODONE HCL 5 MG TABLET PO PRN (10:03)
[2019-06-16] MEDS ORDERED: ONDANSETRON 4 MG/2 ML VIAL IVPUSH PRN (10:03)
[2019-06-16] MEDS ORDERED: MIDAZOLAM HCL 2 MG/2 ML SINGLE DOSE VIAL ONE (11:07)
[2019-06-16] MEDS ORDERED: PROPOFOL 20 ML ONE (11:07)
[2019-06-16] MEDS ORDERED: DEXAMETHASONE SOD PHOSPHATE 4 MG/1 ML VIAL ONE (11:09)
[2019-06-16] MEDS ORDERED: KETOROLAC TROMETHAMINE 30 MG/1 ML VIAL ONE (11:09)
--- NOTE | 2019-06-16 12:52 | OP ---
Operative Note - Note: Operative Date: 06/16/19 Pre-Operative Diagnosis: Left rtenal stone Operation: Left ESWL Findings: 5 mm lower pole Left renal stone Post-Operative Diagnosis: Same as Pre-op Surgeon: Shane Muniz Anesthesia: Fractional Estimated Blood Loss (mls): 0 Fluid Volume Replaced (mls): 0 Operative Report Dictated: Yes
[2019-06-16] MEDS ORDERED: oxyCODONE HCL 5 MG TABLET ONE (12:55)
[2019-06-16] MEDS ORDERED: oxyCODONE HCL 5 MG TABLET PO ONE (13:00)
[2019-06-16 13:16] VITALS: TEMP 98
[2019-06-16 14:20] VITALS: BP 118/78; PULSE 64
--- NOTE | 2019-06-17 10:30 | OP ---
DATE OF OPERATION: 06/16/2019 PREOPERATIVE DIAGNOSIS: Left renal stone. POSTOPERATIVE DIAGNOSIS: Left renal stone. PROCEDURE: Left extracorporeal shock wave lithotripsy. ATTENDING: Jeo Perez MD ANESTHESIA: Fractional. OPERATION: The patient was brought in the operating room and placed in the supine position on the operating room table. Ultrasonography and fluoroscopy were performed. A 5 mm left lower pole stone was identified. Anesthesia and preoperative antibiotics were administered. At this point, the patient underwent a left extracorporeal shock wave lithotripsy; 2500 impulses at 17 joules of power were administered to the stone. Excellent fragmentation of the stone was noted under real-time ultrasonography and fluoroscopy. No complications were noted. The patient tolerated this procedure very well. JOE PEREZ M.D. [id number]
== END 2019-06-16 14:10 | disposition home or self-care (01) ==
LOC: JASU-SURG 09:14
PROVIDERS: ATTEND Urology
PROC: 0TF4XZZ Fragmentation in Left Kidney Pelvis, External Approach (ICD-10-PCS; principal; 2019-06-16 11:00)
DX: N20.0 Calculus of kidney (principal)

== ENCOUNTER 2019-10-20 09:55 | Day surgery (SDC) | payer OTHER ==
[2019-10-16 15:01] VITALS: BMI 31.4
[2019-10-20] MEDS ORDERED: PROPOFOL 20 ML ONE ×2 (13:59)
--- NOTE | 2019-10-20 15:35 | OP ---
Operative Note - Note: Operative Date: 10/20/19 Pre-Operative Diagnosis: Left renal stone Operation: Left ESWL Findings: 6 mm lower pole left renal stone Post-Operative Diagnosis: Same as Pre-op Surgeon: Shane Muniz Anesthesia: Fractional Estimated Blood Loss (mls): 0 Operative Report Dictated: Yes
[2019-10-20] MEDS ORDERED: ONDANSETRON 4 MG/2 ML VIAL IVPUSH PRN (15:46)
[2019-10-20] MEDS ORDERED: oxyCODONE HCL 5 MG TABLET PO PRN (15:46)
[2019-10-20] MEDS ORDERED: LACTATED RINGERS SOLUTION 1,000 ML IV SCH (16:00)
[2019-10-20 16:35] VITALS: PULSE 76
[2019-10-20 16:40] VITALS: BP 144/79; TEMP 98
--- NOTE | 2019-10-21 13:55 | OP ---
DATE OF OPERATION: 10/20/2019 PREOPERATIVE DIAGNOSIS: Left renal stone. POSTOPERATIVE DIAGNOSIS: Left renal stone. PROCEDURE: Left extracorporeal shock-wave lithotripsy. ATTENDING: Joe Perez MD ANESTHESIA: Fractional. DESCRIPTION OF PROCEDURE: The patient was brought in the operating room. Placed in a supine position on the operating room table. Ultrasonography and fluoroscopy were performed. A 6-mm left lower pole stone was identified. Anesthesia and preoperative antibiotics were then administered. Shock-wave lithotripsy was then started; 2500 impulses at 18 joules of power were administered to the stone with excellent fragmentation of the stone under real time ultrasonography and fluoroscopy. Patient tolerated the procedure very well. DISPOSITION: To recovery room. JOE PEREZ M.D. [id number]
== END 2019-10-20 16:15 | disposition home or self-care (01) ==
LOC: JASU-SURG 09:55
PROVIDERS: ATTEND Urology
PROC: 0TF4XZZ Fragmentation in Left Kidney Pelvis, External Approach (ICD-10-PCS; principal; 2019-10-20 12:30)
DX: N20.0 Calculus of kidney (principal)

== ENCOUNTER 2022-12-01 17:07 | Emergency (ER) | payer SELFPAY ==
[2022-12-01 17:26] VITALS: BP 130/86; PULSE 84; RESP 18; TEMP 98.3; BMI 30.7
[2022-12-01] MEDS ORDERED: FLUORESCEIN NA 1 EA STRIP OS ONE (18:02)
[2022-12-01] MEDS ORDERED: TETRACAINE 0.5% HCL 0.6ML DROPPER.BOTTLE OS ONE (18:02)
== END 2022-12-01 18:13 | disposition home or self-care (01) ==
LOC: JERFT 17:07
DX: H01.004 Unspecified blepharitis left upper eyelid (principal)
CPT/HCPCS: 99283-25

== ENCOUNTER 2023-08-20 04:17 | Day surgery (SDC) | payer OTHER ==
[2023-08-17 09:35] VITALS: BMI 29.6
[2023-08-20] MEDS ORDERED: MIDAZOLAM HCL 2 MG/2 ML SINGLE DOSE VIAL ONE (12:18)
[2023-08-20] MEDS ORDERED: FENTANYL CITRATE/PF 50 MCG/ML VIAL ONE (12:18)
[2023-08-20] MEDS ORDERED: ONDANSETRON 4 MG/2 ML VIAL ONE (12:25)
[2023-08-20 13:08] VITALS: RESP 18
[2023-08-20 13:47] VITALS: TEMP 98
[2023-08-20 14:29] VITALS: BP 127/85; PULSE 70
== END 2023-08-20 14:25 | disposition home or self-care (01) ==
LOC: JASU-SURG 04:17
PROVIDERS: ATTEND Urology
PROC: 0TF4XZZ Fragmentation in Left Kidney Pelvis, External Approach (ICD-10-PCS; principal; 2023-08-20 13:00)
DX: N20.0 Calculus of kidney (principal)